=== PATIENT | male | born 1995 | race Caucasian/White ===

== ENCOUNTER 2017-01-16 22:59 | Emergency (ER) | payer MEDICAID ==
[~2017-01-16] VITALS: Ht 167.6 cm; Wt 73.0 kg
[2017-01-17] MEDS ORDERED: KETOROLAC 60MG/2ML VIAL IM ONE (00:15)
[2017-01-17] MEDS ORDERED: LORAZEPAM 2MG/ML CPJ IV ONE ×2 (00:45→02:00)
[2017-01-17] MEDS ORDERED: SODIUM CHLORIDE 0.9% 1,000 ML IV ONE (00:45)
[2017-01-17] MEDS ORDERED: MORPHINE SULFATE 4 MG/ML CPJ (NOT FOR IM USE) IV ONE (01:00)
[2017-01-17 03:06] VITALS: BP 142/71
== END 2017-01-17 03:06 | disposition home or self-care (01) ==
LOC: ER 01-17 00:27
DX: S43.005A Unspecified dislocation of left shoulder joint, initial encounter (principal); F12.10 Cannabis abuse, uncomplicated; F17.200 Nicotine dependence, unspecified, uncomplicated; X58.XXXA Exposure to other specified factors, initial encounter; Y93.51 Activity, roller skating (inline) and skateboarding; Y99.8 Other external cause status; Y92.89 Other specified places as the place of occurrence of the external cause
CPT/HCPCS: 23650; 73030; 96361; 96372; 96374; 96375; 96376; 99284; J1885; J2060; J2270; J7030; Z7610; A4565; L3670

== ENCOUNTER 2017-04-26 19:34 | Emergency (ER) | payer MEDICAID ==
[~2017-04-26] VITALS: Ht 170.2 cm; Wt 73.0 kg
[2017-04-26] MEDS ORDERED: MORPHINE SULFATE 4 MG/ML CPJ (NOT FOR IM USE) IV ONE ×2 (20:15→21:30)
[2017-04-26] MEDS ORDERED: ETOMIDATE 2MG/ML 10ML VIAL IV ONE (21:30)
[2017-04-27 00:33] VITALS: BP 130/78
== END 2017-04-27 00:34 | disposition home or self-care (01) ==
LOC: ER 20:27
DX: S43.015A Anterior dislocation of left humerus, initial encounter (principal); S43.035A Inferior dislocation of left humerus, initial encounter; W01.0XXA Fall on same level from slipping, tripping and stumbling without subsequent striking against object, initial encounter; Y93.89 Activity, other specified; Y92.89 Other specified places as the place of occurrence of the external cause; F17.210 Nicotine dependence, cigarettes, uncomplicated; F12.90 Cannabis use, unspecified, uncomplicated; Z98.890 Other specified postprocedural states
CPT/HCPCS: 23650; 73030; 99152; 99291; J2270; J3490; Z7610; A4565; L3670

== ENCOUNTER 2017-06-25 23:54 | Emergency (ER) | payer MEDICAID ==
[~2017-06-25] VITALS: Ht 170.2 cm; Wt 73.0 kg
[2017-06-26] MEDS ORDERED: PROPOFOL 200MG/20ML VIAL IV ONE (00:45)
[2017-06-26] MEDS ORDERED: ONDANSETRON HCL 4MG/2ML VIAL IV ONE (00:45)
[2017-06-26 02:16] VITALS: BP 128/65
== END 2017-06-26 02:27 | disposition home or self-care (01) ==
LOC: ER 23:54
DX: S43.005A Unspecified dislocation of left shoulder joint, initial encounter (principal); F12.10 Cannabis abuse, uncomplicated; F17.200 Nicotine dependence, unspecified, uncomplicated; X50.9XXA Other and unspecified overexertion or strenuous movements or postures, initial encounter; Y93.89 Activity, other specified; Y99.8 Other external cause status; Y92.89 Other specified places as the place of occurrence of the external cause
CPT/HCPCS: 23650; 73030; 96374; 99152; 99285; J2405; Z7610; A4565; J2704

== ENCOUNTER 2017-06-29 07:26 | Emergency (ER) | payer MEDICAID ==
[~2017-06-29] VITALS: Ht 167.6 cm; Wt 68.0 kg
[2017-06-29] MEDS ORDERED: SODIUM CHLORIDE 0.9% 1,000 ML IV ONE (07:54)
[2017-06-29] MEDS ORDERED: MORPHINE SULFATE 4 MG/ML CPJ (NOT FOR IM USE) IV STA (07:54)
[2017-06-29] MEDS ORDERED: ONDANSETRON HCL 4MG/2ML VIAL IV STA (07:54)
[2017-06-29] MEDS ORDERED: ETOMIDATE 2MG/ML 10ML VIAL IV ONE (08:45)
[2017-06-29 13:13] VITALS: BP 122/68
== END 2017-06-29 13:16 | disposition home or self-care (01) ==
LOC: ER 07:26
DX: S43.085A Other dislocation of left shoulder joint, initial encounter (principal); Y93.84 Activity, sleeping; Y92.092 Bedroom in other non-institutional residence as the place of occurrence of the external cause; R03.0 Elevated blood-pressure reading, without diagnosis of hypertension; F17.210 Nicotine dependence, cigarettes, uncomplicated; F12.90 Cannabis use, unspecified, uncomplicated
CPT/HCPCS: 23650; 73030; 96361; 96374; 96375; 99152; 99285; J2270; J2405; J3490; J7030; J7040; Z7610; L3670

== ENCOUNTER 2017-10-21 22:19 | Emergency (ER) | payer MEDICAID ==
[~2017-10-21] VITALS: Ht 177.8 cm; Wt 82.0 kg
[2017-10-21] MEDS ORDERED: SODIUM CHLORIDE 0.9% 1,000 ML IV ONE (23:35)
[2017-10-21] MEDS ORDERED: TETANUS, DIPHTHERIA, PERTUSSIS VAC/PF 0.5ML (>7YR OLD) IM ONE (23:45)
[2017-10-22 00:13] LABS: CHLORIDE 103 mEq/L (98-107)
[2017-10-22 00:14] LABS: BASOPHILS % 0.6 % (0.0-2.0); EOSINOPHILS % 2.9 % (0.0-5.0); HEMATOCRIT. 46.1 % (42.0-52.0); HEMOGLOBIN. 15.9 g/dL (14.0-18.0); LYMPHOCYTES % 24.2 % (20.0-50.0); MEAN CORPUSCULAR VOLUME 89.8 fL (80.0-94.0); MEAN PLATELET VOLUME 9.5 fl (7.4-10.4); NEUTROPHILS % 64.3 % (40.0-76.0); PLATELET 225 x1000/uL (130-400); RED BLOOD CELL COUNT 5.14 mill/uL (4.7-6.1); RED CELL DISTRIBUTION WIDTH 13.4 % (11.6-14.6)
[2017-10-22 00:22] LABS: PARTIAL THROMBOPLASTIN TIME 24.9 sec (23.4-31.0); PROTHROMBIN TIME 10.5 sec (9.4-11.6)
[2017-10-22 00:25] LABS: CARBON DIOXIDE 29 mEq/L (21-32)
[2017-10-22] MEDS ORDERED: IOHEXOL-300 100 ML BOTTLE ONE (01:56)
[2017-10-22] MEDS ORDERED: FLUORESCEIN SODIUM 1MG/STRIP BOTHEYE ONE (02:45)
[2017-10-22] MEDS ORDERED: TETRACAINE 0.5% OPHTH DROPS 4ML BOTHEYE ONE (02:45)
[2017-10-22 04:37] VITALS: BP 117/70
== END 2017-10-22 04:35 | disposition home or self-care (01) ==
LOC: ER 22:23
DX: S01.21XA Laceration without foreign body of nose, initial encounter (principal); S01.412A Laceration without foreign body of left cheek and temporomandibular area, initial encounter; S05.02XA Injury of conjunctiva and corneal abrasion without foreign body, left eye, initial encounter; F12.10 Cannabis abuse, uncomplicated; V42.5XXA Car driver injured in collision with two- or three-wheeled motor vehicle in traffic accident, initial encounter; Y93.89 Activity, other specified; Y92.89 Other specified places as the place of occurrence of the external cause; Y99.8 Other external cause status
CPT/HCPCS: 36415; 70450; 70486; 71010; 71260; 72125; 72170; 74177; 80053; 83690; 85025; 85610; 85730; 86850; 86900; 86901; 90471; 90715; 99285; A4217; J7030; Q9967; Z7610